=== PATIENT | male | born 1990 | race African-American/Black ===

== ENCOUNTER 2016-05-27 20:02 | Emergency (ER) | payer OTHER ==
[~2016-05-27] VITALS: Ht 170.2 cm; Wt 81.6 kg
[2016-05-27] MEDS ORDERED: ASCO25TA PO (20:26)
[2016-05-27] MEDS ORDERED: LIDOCAINE 1% SDV INJ 30 ML VIAL SC SCH (23:00)
[2016-05-27] MEDS ORDERED: LIDOCAINE 2% MDV 20 ML VIAL SC ONE (23:30)
[2016-05-27 23:50] VITALS: BP 135/72
== END 2016-05-28 00:05 | disposition home or self-care (01) ==
LOC: M ED 21:14
DX: S01.111A Laceration without foreign body of right eyelid and periocular area, initial encounter (principal); W50.0XXA Accidental hit or strike by another person, initial encounter; Y92.89 Other specified places as the place of occurrence of the external cause; Y93.67 Activity, basketball; Y99.9 Unspecified external cause status

== ENCOUNTER 2016-06-20 19:33 | Emergency (ER) | payer OTHER ==
[~2016-06-20] VITALS: Ht 170.2 cm; Wt 81.6 kg
[2016-06-20 19:33] VITALS: BP 142/77
[~2016-06-20 19:33] MED LIST: ASCO25TA PO
[2016-06-20] MEDS ORDERED: THERTAB2 PO (19:55)
[2016-06-20] MEDS ORDERED: AUGM875T27 PO (20:24)
[2016-06-20] MEDS ORDERED: PRED20TA PO (20:24)
[2016-06-20] MEDS ORDERED: ACETAMINOPH W/CODEINE #3 TAB UD PO ONE (20:30)
[2016-06-20] MEDS ORDERED: AUGMENTIN 875 MG TAB PO ONE (20:30)
[2016-06-20] MEDS ORDERED: predniSONE 20 MG TAB PO ONE (20:30)
== END 2016-06-20 20:54 | disposition home or self-care (01) ==
LOC: M ED 20:42
DX: J01.00 Acute maxillary sinusitis, unspecified (principal)

== ENCOUNTER 2016-09-21 11:53 | Emergency (ER) | payer OTHER ==
[~2016-09-21] VITALS: Ht 170.2 cm; Wt 81.8 kg
[~2016-09-21 11:53] MED LIST changes: +AUGM875T28 PO; +PRED20TA PO; +THERTAB2 PO
[2016-09-21] MEDS ORDERED: MULTLIQ7 PO (12:08)
[2016-09-21] MEDS ORDERED: LORATADINE 10 MG TAB PO ONE (13:00)
[2016-09-21 13:04] VITALS: BP 129/86
== END 2016-09-21 13:12 | disposition home or self-care (01) ==
LOC: M ED 11:53
DX: T63.441A Toxic effect of venom of bees, accidental (unintentional), initial encounter (principal); L29.9 Pruritus, unspecified; Y92.89 Other specified places as the place of occurrence of the external cause